=== PATIENT | male | born 1965 | race Caucasian/White ===

== ENCOUNTER 2016-03-30 12:54 | Emergency (ER) | payer MEDICARE, OTHER ==
[~2016-03-30] VITALS: Ht 193 cm; Wt 120.0 kg
[~2016-03-30 12:54] MED LIST: AMO500 PO; D-ME118S6 PO
[2016-03-30 13:03] VITALS: Ht 193 cm; Wt 120.0 kg
== END 2016-03-30 20:11 | disposition left against medical advice (07) ==
LOC: E/R 12:54
DX: Z53.21 Procedure and treatment not carried out due to patient leaving prior to being seen by health care provider (principal)

== ENCOUNTER 2016-04-01 13:08 | Emergency (ER) | payer MEDICARE, OTHER ==
[~2016-04-01] VITALS: Ht 193 cm; Wt 113.0 kg
[2016-04-01 13:21] VITALS: Ht 193 cm; Wt 113.0 kg
[2016-04-01] MEDS ORDERED: ALBUTEROL 0.083% (NEB) 2.5 MG/3 ML AMP HHN ONE (16:00)
--- NOTE | 2016-04-01 16:22 | RADRPT ---
PROCEDURE: XR Chest. CLINICAL INDICATION: Shortness of breath TECHNIQUE: A single portable view of the chest was obtained. COMPARISON: None FINDINGS: The cardiomediastinal silhouette is within normal limits. The lungs and pleural spaces are clear. The soft tissues and osseous structures are unremarkable. IMPRESSION: No acute cardiopulmonary disease. RPTAT: HPNM Physician Abdulaziz Date Time Electronically viewed and signed by Fam Mcgill Physician on 04/01/2016 16:22 /
--- NOTE | 2016-04-01 18:55 | ERD ---
ER Documentation Chief Complaint Date/Time DATE: 04/01/16 TIME: 18:50 Chief Complaint SOB,HX COPD AND ASTHMA HPI Patient is a 50-year-old male with a history of asthma, hypertension, autism, Tourette's, arthritis who presents to the ED with one episode of shortness of breath 2 days ago. Patient states that on Wednesday he had an episode of shortness of breath. Denies any shortness of breath on Wednesday or today. He states he ate he has had this in the past and it went away on its own. He denies cough, difficulty breathing. Denies recent travel, leg pain or swelling. Denies headache or dizziness. Denies trauma. Denies abdominal pain , nausea, vomiting or diarrhea. No other complaints. ROS All systems reviewed and are negative except as per history of present illness. Medications Home Meds Active Scripts Dextromethorphan Hb-Promethazine Hcl (Promethazine DM Syrup) 180 Ml Syrup, 5 ML PO Q6H Y for COUGH, #4 OZ Prov:OTTO WELLS DO 08/31/15 Amoxicillin* (Amoxicillin*) 500 Mg Cap, 500 MG PO TID for 7 Days, CAP Prov:OTTO WELLS DO 08/31/15 Allergies Allergies: Coded Allergies: No Known Allergy (Unverified , 03/04/13) PMhx/Soc History of Surgery: No Anesthesia Reaction: No Hx Neurological Disorder: Yes (autism, tourettes) Hx Respiratory Disorders: Yes (asthma) Hx Cardiac Disorders: Yes (htn) Hx Psychiatric Problems: Yes (autism) Hx Miscellaneous Medical Probl: Yes (L5-S1 herniated disct, arthritis, environmental allergies) Hx Alcohol Use: No Hx Substance Use: No Hx Tobacco Use: No Smoking Status: Never smoker FmHx Family History: No coronary disease, No diabetes, No other Physical Exam Vitals Vital Signs Date Time Temp Pulse Resp B/P Pulse Ox O2 Delivery O2 Flow Rate FiO2 04/01/16 16:46 89 20 95 21 04/01/16 13:21 98.3 89 20 136/63 95 Physical Exam GENERAL: Well-developed, well-nourished male. Appears in no acute distress. HEAD: Normocephalic, atraumatic. NECK: Supple. No lymphadenopathy or thyromegaly. No meningismus. negative kernig. negative brudinski. LUNG: Clear to auscultation bilaterally. No rhonchi, wheezing, rales or coarse breath sounds. HEART: Regular rate and rhythm. No murmurs, rubs or gallops. Extremities: Equal pulses bilaterally. No peripheral clubbing, cyanosis or edema. No unilateral leg swelling. NEUROLOGIC: Alert and oriented. Moving all four extremities. 5/5 strength in all extremities. Normal speech. Steady gait. SKIN: Normal color. Warm and dry. No rashes or lesions. Capillary refill < 2 seconds Results 24 hrs Current Medications Medications (Trade) Dose Ordered Sig/Kush Route PRN Reason Start Time Stop Time Status Last Admin Dose Admin Albuterol (Proventil 0.083% (Neb)) 2.5 mg ONCE ONCE HHN 04/01/16 16:00 04/01/16 16:01 DC 04/01/16 16:45 Procedures/MDM ER COURSE: I kept the patient and/or family informed of laboratory and diagnostic imaging results throughout the emergency room course. EKG, MONITORS, & DIAGNOSTIC IMAGING: EKG performed, read by Dr Rojas normal sinus rhythm, normal axis, no acute ST segment changes, no T wave inversion [place] [id number] Radiology Main Line: [phone] DIAGNOSTIC IMAGING REPORT Patient: MITCHEL GAXIOLA : 1965 Age: 50 Sex: M MR #: [id number] DOS: 04/01/16 1541 Ordering MD: GREGORY SANCHEZ PA-C Location: [facility] Room/Bed: PROCEDURE: XR Chest. CLINICAL INDICATION: Shortness of breath TECHNIQUE: A single portable view of the chest was obtained. COMPARISON: None FINDINGS: The cardiomediastinal silhouette is within normal limits. The lungs and pleural spaces are clear. The soft tissues and osseous structures are unremarkable. IMPRESSION: No acute cardiopulmonary disease. RPTAT: HPNM Physician Abdulaziz Date Time Electronically viewed and signed by Physician Abdulaziz on 04/01/2016 16 :22 / CC: GREGORY SANCHEZ PA-C PROCEDURES: RT consult. Albuterol. Patient told medication well with no adverse reaction. MEDICAL DECISION MAKING: This is a 50-year-old male with a history of autism and Tourette's who presents with shortness of breath. Vital signs were reviewed. Patient is afebrile. Patient is not hypoxic. Patient is not toxic or ill-appearing. I have consulted with Dr Rojas who has reviewed his results and agrees with plan. Patient has shortness of breath of unknown etiology. Low suspicion for ACS, PE , AAA, dissection, DVT. Low suspicion for pneumonia, PE, pneumothorax, ACS, epiglottitis, obstruction, TB, pertussis, meningitis, sepsis. PERC Criteria Assessment: Age > 50: No HR > 100: No 02 < 95%: No H/o DVT/PE: No Recent trauma/surgery: No Hemoptysis: No Exogenous Estrogen: No Unilateral Leg swelling: No Pretest probability > 15%: No [Less than 2% risk of PE. No further work up is necessary] DISCHARGE: At this time, patient is stable for discharge and outpatient management with no new complaints during the ER course. Patient was sent home with a form filled out for patient. . Patient will be discharged home with instructions to recheck for new or worsening symptoms such as fever, nausea, weakness, LOC and to follow up with primary care in the next 1-2 days. Patient was advised to return to the ER for any new or worsening symptoms. Plan was discussed and patient and/or family understands and agrees. Home instructions were given. Departure Diagnosis: Primary Impression: Shortness of breath Condition: Stable Patient Instructions: Coping with Shortness of Breath: Controlling Stress Referrals: CEZAR MAYES (PCP) Additional Instructions: Call your primary care doctor TOMORROW for an appointment during the next 1-2 days.See the doctor sooner or return here if your condition worsens before your appointment time. GREGORY SANCHEZ PA-C Apr 01, 2016 18:55
== END 2016-04-01 18:14 | disposition home or self-care (01) ==
LOC: FTE 13:08
DX: R06.02 Shortness of breath (principal); I10 Essential (primary) hypertension; J45.909 Unspecified asthma, uncomplicated; F84.0 Autistic disorder
CPT/HCPCS: 71010; 93005; 94664

== ENCOUNTER 2016-05-31 14:29 | Emergency (ER) | payer MEDICARE, OTHER ==
[~2016-05-31] VITALS: Wt 115.0 kg
== END 2016-05-31 14:42 | disposition left against medical advice (07) ==
LOC: E/R 14:29
DX: Z53.21 Procedure and treatment not carried out due to patient leaving prior to being seen by health care provider (principal)